=== PATIENT | female | born 1975 | race Caucasian/White ===

== ENCOUNTER 2018-05-23 15:47 | Emergency (ER) | payer MEDICAID ==
[~2018-05-23] VITALS: Ht 154.9 cm; Wt 61.2 kg
[~2018-05-23 15:47] MED LIST: ATIVAN; HALDOL; LITHIUM
--- NOTE | 2018-05-23 16:00 | NUR ---
Pt's seen and examined by ARSALAN BRYAN.
[2018-05-23] MEDS: NAPROXEN 500 MG TABLET PO ONE (16:17)
[2018-05-23 16:18] VITALS: BP 151/89
--- NOTE | 2018-05-23 16:43 | NUR ---
Patient discharged to home in stable conditon. Written and verbal after care instructions given. Patient verbalizes understanding of instructions.
== END 2018-05-23 16:43 | disposition home or self-care (01) ==
LOC: ER 15:47
DX: M79.10 Myalgia, unspecified site (principal); R07.0 Pain in throat; F17.290 Nicotine dependence, other tobacco product, uncomplicated; Z79.899 Other long term (current) drug therapy
CPT/HCPCS: A4663

== ENCOUNTER → 2018-06-05 18:30 | Emergency (ER) | payer MEDICAID | END | disposition left against medical advice (07) | LOC: ER 18:30 | DX: Z53.21 Procedure and treatment not carried out due to patient leaving prior to being seen by health care provider (principal) ==

== ENCOUNTER 2018-06-06 15:07 | Emergency (ER) | payer MEDICAID ==
[~2018-06-06] VITALS: Ht 165.1 cm; Wt 61.2 kg
--- NOTE | 2018-06-06 15:26 | NUR ---
PT A/OX4, PRESENTS TO THE ER C/O CHRONIC GENERALIZED BODY ACHE. PT DOES NOT APPEAR TO BE IN ANY APPARENT DISTRESS. PT STATES SHE IS HOMELESS AND HAS BEEN OFF OF ALL PSYCH MEDS FOR APPROXIMATELY 3 YEARS. PT IS HYPERTENSIVE, ER MD AWARE. PT DENIES C/P, SOB, N/V/D, DIZZINESS, HEADACHE. ER ME AT BEDSIDE FOR MSE.
[2018-06-06] MEDS ORDERED: LITHIUM CARBONATE 300 MG CAPSULE PO SCH (15:45)
--- NOTE | 2018-06-06 16:10 | NUR ---
PATIENT PROVIDED WITH MEAL AND DRINKS
--- NOTE | 2018-06-06 16:36 | NUR ---
Patient discharged to home in stable conditon. Written and verbal after care instructions given. Patient verbalizes understanding of instructions. PT D/C W/ PRESCRIPTION. ALL BELONGINGS W/ PT. PT SELF-AMBULATED W/O DIFFICULTY.
--- NOTE | 2018-06-06 16:41 | NUR ---
PT REFUSED RESIDENTIAL INSTRUCTOR CONSULT, STATES SHE WANTS TO BE DISCHARGED TO SELF W/ NO HOMELESS JAIL REFERRALS.
--- NOTE | 2018-06-06 16:57 | NUR ---
SW arrived to the ED for SS consultation, but was informed by Dr. Hood that patient had refused SS consultation and had left the ED. No further SS interventions needed at this time.
== END 2018-06-06 16:41 | disposition home or self-care (01) ==
LOC: ER 15:10
DX: F31.9 Bipolar disorder, unspecified (principal); F17.200 Nicotine dependence, unspecified, uncomplicated; F29 Unspecified psychosis not due to a substance or known physiological condition; Z59.0 Homelessness
CPT/HCPCS: A4663

== ENCOUNTER 2019-01-09 18:06 | Emergency (ER) | payer MEDICAID ==
[~2019-01-09] VITALS: Ht 154.9 cm; Wt 61.2 kg
[2019-01-09] MEDS ORDERED: IBUP-1955 PO (18:29)
--- NOTE | 2019-01-09 18:47 | NUR ---
pt ambulating with steady gait. asked what brings patient to ER. pt stated "I'm just here to take my meds and feel good. I don't really want to answer questions right now".
--- NOTE | 2019-01-09 19:06 | NUR ---
HAND OFF AND SBAR RECEIVED FROM OUTGOING DAY SHIFT RN Patient eloped from facility. ER physician notified.
--- NOTE | 2019-01-09 19:07 | NUR ---
report given to Liliana HERNANDEZ
== END 2019-01-09 19:09 | disposition left against medical advice (07) ==
LOC: ER 18:07
DX: M79.10 Myalgia, unspecified site (principal); F31.9 Bipolar disorder, unspecified; F17.200 Nicotine dependence, unspecified, uncomplicated; Z59.0 Homelessness; Z79.1 Long term (current) use of non-steroidal anti-inflammatories (NSAID)
CPT/HCPCS: A4663

== ENCOUNTER 2020-12-27 23:10 | Emergency (ER) | payer MEDICAID ==
[~2020-12-27] VITALS: Ht 167.6 cm; Wt 61.2 kg
[~2020-12-27 23:10] MED LIST changes: -ATIVAN; -HALDOL; +IBUP-1955 PO; -LITHIUM
--- NOTE | 2020-12-27 23:15 | NUR ---
Dr. Corey at bedside for MSE.
[2020-12-27] MEDS ORDERED: ACETAMINOPHEN 325 MG TABLET PO ONE (23:30)
[2020-12-27] MEDS ORDERED: IBUPROFEN 600 MG TABLET PO ONE (23:30)
--- NOTE | 2020-12-27 23:31 | NUR ---
Patient given written and verbal discharge instructions. Patient verbalizes understanding of instructions. Patient is ambulatory with steady gait. Refuses offer of snf placement. Patient given list of available shelters in surrounding area. Patient provided food, hygiene products, refused all other services at this time, VSS, all belongings taken, no acute signs of distress.
[2020-12-27 23:33] VITALS: BP 145/118
[2020-12-27] MEDS ORDERED: ACETAMINOPHEN ES 500 MG TABLET ONE (23:36)
[2020-12-27] MEDS ORDERED: IBUPROFEN 600 MG TABLET ONE (23:36)
== END 2020-12-27 23:33 | disposition home or self-care (01) ==
LOC: ER 23:15
DX: R52 Pain, unspecified (principal); F17.210 Nicotine dependence, cigarettes, uncomplicated; Z59.00 Homelessness unspecified
CPT/HCPCS: A4663; A9150